=== PATIENT | female | born 1960 | race African-American/Black ===

== ENCOUNTER 2019-04-14 18:43 | Emergency (ER) | payer OTHER ==
[~2019-04-14] VITALS: Ht 162.6 cm; Wt 92.5 kg
[~2019-04-14 18:43] MED LIST: CLINDAMYCIN300 M1 PO; LAC PO; LEVAQUIN750 MG PO; NEXIUM40 MG PO; NORCO1 TA1 PO; ZITHROMAX Z-PA250 MG PO; [UNRECOGNIZED DRUG - CODE] PO
[2019-04-14 18:50] VITALS: Ht 162.6 cm; Wt 92.5 kg
[2019-04-14 20:24] LABS: BASOPHIL % 0.1 % (0-2); PLATELET COUNT 322 x10^3mcL (130-400)
[2019-04-14 20:26] LABS: RED CELL DISTRIBUTION WIDTH 15.1 % (11.5-14.5)
[2019-04-14 20:54] LABS: microscopic required? YES; urine erythrocyte 1+ (NEGATIVE)
[2019-04-14 21:02] LABS: CALCIUM 8.9 mg/dL (8.5-10.1); CARBON DIOXIDE 28.9 mmol/L (21-32); CHLORIDE SERUM 101 mmol/L (98-107); CREATININE SERUM 0.9 mg/dL (0.6-1.0); GFR1 > 60 mL/min; GLUCOSE SERUM 114 mg/dL (74-106); POTASSIUM SERUM 3.4 mmol/L (3.5-5.1); SODIUM SERUM 138 mmol/L (136-145)
[2019-04-14 21:07] LABS: ALBUMIN 3.4 g/dL (3.4-5.0); ALKALINE PHOSPHATASE 121 U/L (46-116); ALT/SGPT 28 U/L (14-59); AMYLASE 32 U/L (25-115); AST/SGOT 23 U/L (15-37); BILIRUBIN TOTAL 1.02 mg/dL (0.20-1.00); LIPASE 19 IU/L (73-393)
[2019-04-15 01:38] VITALS: BP 112/73
== END 2019-04-15 01:38 | disposition home or self-care (01) ==
LOC: ED 18:43
PROVIDERS: Emergency Medicine
DX: R10.9 Unspecified abdominal pain (principal); R53.1 Weakness; R50.9 Fever, unspecified; R11.10 Vomiting, unspecified; R63.0 Anorexia
CPT/HCPCS: 85378; 87804; J1885; J7030; Q0092; Q9967